=== PATIENT | female | born 1935 | race Caucasian/White ===

== ENCOUNTER 2025-05-08 14:27 | Inpatient (IN) | payer BC, OTHER ==
[~2025-05-08] VITALS: Ht 162.6 cm; Wt 72.6 kg
[2025-05-08] MEDS: IV NS 0.9% 1,000 ML BAG IV ONE (15:30)
[2025-05-08] MEDS: CEFEPIME 1 GM in IV D5W 50 ML IV ONE (15:42)
[2025-05-08 15:49] LABS: PLATELET COUNT (AUTO) 90 K/uL (150-450); RED BLOOD CELL COUNT(AUTO) 4.53 MIL/uL (4.0-5.2); RED CELL DISTRIBUTION WIDTH 17.7 % (11.5-15.0); WHITE BLOOD COUNT (AUTO) 27.6 K/uL (4.3-11.0)
[2025-05-08 16:01] LABS: INR 1.04 (0.91-1.10)
[2025-05-08 16:07] LABS: ASPARTATE AMINOTRANSFERASE 79 U/L (15-37); CALCIUM, SERUM 8.1 mg/dL (8.5-10.1); CREATININE 2.2 mg/dL (0.6-1.3); SODIUM SERUM 137 mmol/L (136-145); TOTAL PROTEIN, SERUM 6.6 g/dL (6.4-8.2); UREA NITROGEN, BLOOD 32 mg/dL (7-18)
[2025-05-08] MEDS ORDERED: ZINC57OI4 TP (16:18)
[2025-05-08] MEDS ORDERED: MAGN400O6 PO (16:18)
[2025-05-08] MEDS ORDERED: ASCO-352 PO (16:18)
[2025-05-08] MEDS ORDERED: HYDR-4209 PO (16:18)
[2025-05-08] MEDS ORDERED: LISI40TA13 PO (16:18)
[2025-05-08] MEDS ORDERED: LEVO75TA PO (16:18)
[2025-05-08] MEDS ORDERED: AMLO10TA4 PO (16:18)
[2025-05-08] MEDS ORDERED: CRAN3875 PO (16:18)
[2025-05-08] MEDS ORDERED: ACET-868 PO ×2 (16:18)
[2025-05-08] MEDS ORDERED: L. A1TAB10 PO (16:18)
[2025-05-08] MEDS ORDERED: CRAN425C6 PO (16:18)
[2025-05-08] MEDS ORDERED: MULT-213 PO (16:18)
[2025-05-08] MEDS ORDERED: ASPI-1169 PO (16:18)
[2025-05-08] MEDS ORDERED: PREG25CA51 PO (16:18)
[2025-05-08] MEDS ORDERED: CLOP75TA15 PO (16:18)
[2025-05-08] MEDS ORDERED: CALC-261 PO (16:18)
[2025-05-08] MEDS ORDERED: DOCU100T2 PO (16:18)
[2025-05-08 16:50] LABS: LACTIC ACID 3.5 mmol/L (0.4-2.0)
[2025-05-08 16:58] LABS: BAND % (MANUAL) 4 % (0.0-5.0); NEUTROPHILS % (MANUAL) 91 (42-76)
[2025-05-08 16:59] LABS: BASOPHILS % (MANUAL) 0 % (0.0-2.0); EOSINOPHILS % (MANUAL) 0 % (0-4); LYMPHOCYTES % (MANUAL) 3 % (16-48); MONOCYTES % (MANUAL) 2 % (0-11.0); PLATELET ESTIMATE DECREASED
[2025-05-08] MEDS ORDERED: DOSING PER PHARMACY-VANCOMYCIN IV XX PRN (17:30)
[2025-05-08] MEDS ORDERED: ACETAMINOPHEN 325 MG TABLET PO PRN (17:30)
[2025-05-08] MEDS ORDERED: IPRATROPIUM NEB FS 0.5 MG/2.5 ML AMPUL.NEB NEB PRN (17:30)
[2025-05-08] MEDS ORDERED: Z GUARD REMEDY 4 OZ OINT TP PRN (17:30)
[2025-05-08] MEDS ORDERED: ALBUTEROL FS 2.5 MG/0.5 ML VIAL.NEB NEB PRN (17:30)
[2025-05-08] MEDS ORDERED: MAGNESIUM HYDROXIDE 30 ML UDC PO PRN (17:30)
[2025-05-08] MEDS ORDERED: DOSING PER PHARMACY-CEFEPIME IVPB XX PRN (17:30)
[2025-05-08] MEDS ORDERED: DEXTROSE 50%-WATER 50 ML DISP.SYRIN IV PRN (17:30)
[2025-05-08] MEDS ORDERED: MAG HYDROX/AL HYDROX/SIMETH 30 ML UDC PO PRN (17:30)
[2025-05-08] MEDS ORDERED: ONDANSETRON HCL/PF 4 MG/2 ML VIAL IVP PRN (17:30)
[2025-05-08 18:06] LABS: APPEARANCE,URINE SLIGHTLY CLOUDY (CLEAR); BLOOD, URINE 2+ Ery/uL (NEGATIVE); LEUKOCYTE ESTERASE ,URINE 2+ (NEGATIVE); NITRITE, URINE NEGATIVE (NEGATIVE); UGLUCOSE NEGATIVE (NEGATIVE)
[2025-05-08 18:45] LABS: ADD URINE CULTURE YES; SQUAMOUS EPITHELIAL CELL,UR Few /HPF (None Seen)
[2025-05-08] MEDS: HYDROCORTISONE SOD SUCCINATE 100 MG/2 ML VIAL IV SCH (19:28)
[2025-05-08] MEDS: BLOOD SUGAR DIAGNOSTIC 1 EACH STRIP IN SCH (19:57)
[2025-05-08] MEDS: INSULIN REGULAR, HUMAN 100 UNIT/ML 3 ML VIAL SQ PRN (19:58)
[2025-05-08] MEDS: VANCOMYCIN HCL 1.25 GM in IV D5W 250 ML IV ONE (20:04)
[2025-05-08] MEDS: IV NS 0.9% 1,000 ML IV PRN (20:04)
[2025-05-08 22:00] VITALS: BP 116/84; TEMP 98.1; O2SAT 97
[2025-05-09] VITALS (68 sets, daily range): BP systolic 74–124; BP diastolic 40–95; TEMP 97.3–98.4; O2SAT 93–100
[2025-05-09] MEDS: IV NS 0.9% 500 ML IV ONE (01:23)
[2025-05-09] MEDS ORDERED: IV NS 0.9% 500 ML IV ONE (01:30)
[2025-05-09] MEDS: HYDROCORTISONE SOD SUCCINATE 100 MG/2 ML VIAL IV SCH (02:51)
[2025-05-09] MEDS: CEFEPIME 1 GM in IV D5W 50 ML IV SCH (02:51)
[2025-05-09] MEDS: NOREPINEPHRINE 8MG/250ML RTU 250 ML IV ONE (03:33)
[2025-05-09] MEDS: NOREPINEPHRINE 8 MG in IV NS 0.9% 242 ML IV PRN (03:56)
[2025-05-09] MEDS ORDERED: PANTOPRAZOLE 40 MG TABLET.DR PO SCH (07:30)
[2025-05-09 08:01] LABS: CALCIUM, SERUM 8.3 mg/dL (8.5-10.1); CREATININE 1.6 mg/dL (0.6-1.3); PHOSPHORUS 3.8 mg/dL (2.5-4.9); SODIUM SERUM 143.0 mmol/L (136-145); UREA NITROGEN, BLOOD 29.0 mg/dL (7-18)
[2025-05-09] MEDS: PANTOPRAZOLE 40 MG VIAL IV SCH (08:18)
[2025-05-09 08:19] LABS: PLATELET COUNT (AUTO) 132 K/uL (150-450); RED BLOOD CELL COUNT(AUTO) 4.74 MIL/uL (4.0-5.2); RED CELL DISTRIBUTION WIDTH 18.0 % (11.5-15.0)
[2025-05-09 08:25] LABS: WHITE BLOOD COUNT (AUTO) 38.2 K/uL (4.3-11.0)
[2025-05-09 10:36] LABS: BASOPHILS % (MANUAL) 0 % (0.0-2.0); EOSINOPHILS % (MANUAL) 0 % (0-4); LYMPHOCYTES % (MANUAL) 5 % (16-48); MONOCYTES % (MANUAL) 3 % (0-11.0); NEUTROPHILS % (MANUAL) 92 (42-76); PLATELET ESTIMATE DECREASED
[2025-05-09] MEDS: VANCOMYCIN 500 MG in IV D5W 100ml IV SCH (20:00)
[2025-05-09 22:22] LABS: HIV-1/2 ANTIBODY NON REACTIVE (NONREACTIVE)
[2025-05-10] VITALS (28 sets, daily range): BP systolic 88–145; BP diastolic 38–75; TEMP 97.9–98.2; O2SAT 95–97
[2025-05-10 00:02] LABS: CREATININE, URINE 51.5 MG/DL (30.0-125.0); URINE TOTAL PROTEIN 39.3 mg/dL (0-11.9)
[2025-05-10 04:30] LABS: PLATELET COUNT (AUTO) 89 K/uL (150-450); RED BLOOD CELL COUNT(AUTO) 4.32 MIL/uL (4.0-5.2); RED CELL DISTRIBUTION WIDTH 18.7 % (11.5-15.0); WHITE BLOOD COUNT (AUTO) 13.7 K/uL (4.3-11.0)
[2025-05-10 04:45] LABS: ASPARTATE AMINOTRANSFERASE 23.0 U/L (15-37); CALCIUM, SERUM 8.0 mg/dL (8.5-10.1); CREATININE 1.2 mg/dL (0.6-1.3); PHOSPHORUS 2.6 mg/dL (2.5-4.9); SODIUM SERUM 142.0 mmol/L (136-145); TOTAL PROTEIN, SERUM 6.0 g/dL (6.4-8.2); UREA NITROGEN, BLOOD 27.0 mg/dL (7-18)
[2025-05-10 05:11] LABS: CREATINE KINASE, TOTAL 132.0 U/L (26-192); LYMPHOCYTES % (MANUAL) 9 % (16-48); MONOCYTES % (MANUAL) 2 % (0-11.0); NEUTROPHILS % (MANUAL) 89 (42-76)
[2025-05-10 05:12] LABS: PLATELET ESTIMATE DECREASED
[2025-05-10] MEDS: PANTOPRAZOLE 40 MG TABLET.DR PO SCH (08:33)
[2025-05-10] MEDS ORDERED: VANCOMYCIN 1 GM in IV D5W 250ml IV SCH (20:00)
[2025-05-11] VITALS (78 sets, daily range): BP systolic 34–157; BP diastolic 13–134; TEMP 96.8–98.4; O2SAT 77–99
[2025-05-11] MEDS: TEMAZEPAM 7.5 MG CAPSULE PO PRN (00:07)
[2025-05-11 01:58] LABS: ABG BASE EXCESS -14.7 mmol/L (-2.0-3.0); ABG OXYGEN SATURATION 99.4 % (94.0-98.0); ABG PCO2 56.7 mmHg (32.0-45.0); ABG PH 7.064 (7.350-7.450); ABG PO2 263.6 mmHg (83.0-108.0); ABG TOTAL HEMOGLOBIN 14.2 G/dL (12.0-16.0); FLOW, BLOOD GAS 15.00 L/min (0.00-30.00); FRACTIONATED INSPIRED OXYGEN 100.0 %; SITE, ABG RIGHT BRACHIAL
[2025-05-11] MEDS: NOREPINEPHRINE 8 MG in IV NS 0.9% 242 ML IV PRN (02:59)
[2025-05-11] MEDS: FUROSEMIDE 40 MG/4 ML VIAL IV ONE (03:02)
[2025-05-11] MEDS: PROPOFOL 100 ML ONE (03:10)
[2025-05-11] MEDS: NOREPINEPHRINE 8MG/250ML RTU 250 ML IV ONE (03:12)
[2025-05-11] MEDS: PROPOFOL 10MG/ML 50ML 50 ML IV PRN (03:25)
[2025-05-11] MEDS: PHENYLEPHRINE 50 MG in IV NS 0.9% 245 ML IV PRN (03:30)
[2025-05-11 03:42] LABS: PLATELET COUNT (AUTO) 145 K/uL (150-450); RED BLOOD CELL COUNT(AUTO) 4.91 MIL/uL (4.0-5.2); RED CELL DISTRIBUTION WIDTH 18.4 % (11.5-15.0)
[2025-05-11 03:51] LABS: ABG BASE EXCESS -9.8 mmol/L (-2.0-3.0); ABG OXYGEN SATURATION 99.8 % (94.0-98.0); ABG PCO2 41.1 mmHg (32.0-45.0); ABG PH 7.237 (7.350-7.450); ABG PO2 354.6 mmHg (83.0-108.0); ABG TOTAL HEMOGLOBIN 14.6 G/dL (12.0-16.0); FRACTIONATED INSPIRED OXYGEN 100.0 %; PEEP,BG 0 cm H2O; SET RATE, BG 20.0; SITE, ABG RIGHT RADIAL; VT, ABG 450 mL
[2025-05-11 03:57] LABS: ASPARTATE AMINOTRANSFERASE 28.0 U/L (15-37); CALCIUM, SERUM 8.3 mg/dL (8.5-10.1); CREATININE 1.5 mg/dL (0.6-1.3); NT-PRO BNP 10092.0 pg/mL (0-125); SODIUM SERUM 144.0 mmol/L (136-145); TOTAL PROTEIN, SERUM 6.5 g/dL (6.4-8.2); UREA NITROGEN, BLOOD 34.0 mg/dL (7-18)
[2025-05-11 03:58] LABS: WHITE BLOOD COUNT (AUTO) 31.7 K/uL (4.3-11.0)
[2025-05-11] MEDS: PHENYLEPHRINE 10 MG/ML VIAL ONE (03:59)
[2025-05-11 04:17] LABS: LYMPHOCYTES % (MANUAL) 3 % (16-48); MONOCYTES % (MANUAL) 2 % (0-11.0); NEUTROPHILS % (MANUAL) 95 (42-76); PLATELET ESTIMATE DECREASED
[2025-05-11] MEDS ORDERED: IV NS 0.9% 250 ML IV ONE (04:30)
[2025-05-11] MEDS ORDERED: CT SWABBABLE VALVE TRANS SET 1 EA INFUS.SET MC ONE (04:30)
[2025-05-11] MEDS ORDERED: IOHEXOL-350 100 ML VIAL IV ONE (04:30)
[2025-05-11] MEDS: HYDROCORTISONE SOD SUCCINATE 100 MG/2 ML VIAL IV STA (07:43)
[2025-05-11] MEDS: SODIUM BICARBONATE SYR 50 MEQ/50 ML DISP.SYRIN IV ONE ×2 (08:35→08:50)
[2025-05-11] MEDS: IV LR 500 ML IV ONE (08:47)
[2025-05-11] MEDS: VASOPRESSIN INJ 40 UNIT in IV NS 0.9% 38 ML IV PRN (08:57)
[2025-05-11] MEDS: ENSURE ENLIVE 237 ML LIQUID (VANILLA) PO SCH (09:00)
[2025-05-11 09:52] LABS: ABG BASE EXCESS -13.8 mmol/L (-2.0-3.0); ABG OXYGEN SATURATION 99.5 % (94.0-98.0); ABG PCO2 29.3 mmHg (32.0-45.0); ABG PH 7.236 (7.350-7.450); ABG PO2 300.6 mmHg (83.0-108.0); ABG TOTAL HEMOGLOBIN 14.7 G/dL (12.0-16.0); FRACTIONATED INSPIRED OXYGEN 100.0 %; PEEP,BG 5 cm H2O; SET RATE, BG 16.0; SITE, ABG LEFT RADIAL; VT, ABG 450 mL
[2025-05-11] MEDS: Sodium Bicarbonate 150 MEQ in IV D5W 1,000 ML IV SCH (09:56)
[2025-05-11] MEDS ORDERED: DOSING PER PHARMACY-VANCOMYCIN IV XX PRN (10:00)
[2025-05-11] MEDS: HYDROCORTISONE SOD SUCCINATE 100 MG/2 ML VIAL IV SCH ×2 (11:27→13:11)
[2025-05-11] MEDS: VANCOMYCIN 500 MG in IV D5W 100ml IV SCH (12:19)
[2025-05-11] MEDS ORDERED: EPINEPHRINE (1:10,000) SYRINGE 1 MG/10 ML DISP.SYRIN IVP ONE (12:29)
[2025-05-11] MEDS ORDERED: ETOMIDATE 2 MG/ML VIAL IV ONE (12:29)
[2025-05-11] MEDS ORDERED: ROCURONIUM BROMIDE 50 MG/5 ML IV ONE (12:29)
[2025-05-11] MEDS ORDERED: SODIUM BICARBONATE SYR 50 MEQ/50 ML DISP.SYRIN IV ONE (12:29)
[2025-05-11] MEDS: MEROPENEM 500 MG in IV NS 0.9% 50 ML IV SCH (13:11)
[2025-05-11] MEDS ORDERED: NOREPINEPHRINE 32 MG in IV NS 0.9% 218 ML IV PRN (14:00)
[2025-05-11] MEDS: NOREPINEPHRINE 32 MG in IV NS 0.9% 218 ML IV PRN (14:54)
[2025-05-11] MEDS: PHENYLEPHRINE 100 MG in IV NS 0.9% 240 ML IV PRN (14:57)
[2025-05-11] MEDS ORDERED: HEPARIN SODIUM, PORCINE 5000 UNITS/1 ML VIAL SQ SCH (21:00)
[2025-05-11] MEDS ORDERED: FUROSEMIDE 40 MG/4 ML VIAL IV SCH (21:00)
[2025-05-11] MEDS ORDERED: HEPARIN SODIUM,PORCINE/PF 50 UNIT/5 ML DISP.SYRIN IV ONE (23:00)
[2025-05-11] MEDS: HEPARIN SODIUM, PORCINE 5000 UNITS/1 ML VIAL IV ONE (23:40)
[2025-05-11] MEDS: HEPARIN INFUSION/D5W 500 ML IV PRN (23:46)
[2025-05-12] VITALS (14 sets, daily range): BP systolic 34–83; BP diastolic 12–66; TEMP 97.8; O2SAT 90–92
[2025-05-12] MEDS ORDERED: VASOPRESSIN INJ 20 UNIT/ML VIAL ONE (03:00)
[2025-05-12] MEDS ORDERED: SODIUM BICARBONATE SYR 50 MEQ/50 ML DISP.SYRIN IV ONE (05:42)
[2025-05-12 07:07] LABS: PTH, INTACT 46 pg/mL (15-65)
== END 2025-05-12 05:43 | DRG 871 ==
LOC: ER 14:35 → TELE1 17:46 → ICU 05-09 03:35 → TELE1 05-10 18:18 → ICU 05-11 02:57
PROC: 5A1935Z Respiratory Ventilation, Less than 24 Consecutive Hours (ICD-10-PCS; principal; 2025-05-11)
PROC: 0BH17EZ Insertion of Endotracheal Airway into Trachea, Via Natural or Artificial Opening (ICD-10-PCS; 2025-05-11)
PROC: 5A2204Z Restoration of Cardiac Rhythm, Single (ICD-10-PCS; 2025-05-11)
PROC: 0JHL3XZ Insertion of Tunneled Vascular Access Device into Right Upper Leg Subcutaneous Tissue and Fascia, Percutaneous Approach (ICD-10-PCS; 2025-05-11)
PROC: 06HM33Z Insertion of Infusion Device into Right Femoral Vein, Percutaneous Approach (ICD-10-PCS; 2025-05-11)
DX: A41.9 Sepsis, unspecified organism (principal); G92.8 Other toxic encephalopathy; J69.0 Pneumonitis due to inhalation of food and vomit; N17.0 Acute kidney failure with tubular necrosis; J96.01 Acute respiratory failure with hypoxia; J96.02 Acute respiratory failure with hypercapnia; N39.0 Urinary tract infection, site not specified; I50.32 Chronic diastolic (congestive) heart failure; I48.92 Unspecified atrial flutter; R18.8 Other ascites; J90 Pleural effusion, not elsewhere classified; J98.11 Atelectasis; Z66 Do not resuscitate; Z20.822 Contact with and (suspected) exposure to COVID-19; I11.0 Hypertensive heart disease with heart failure; I25.119 Atherosclerotic heart disease of native coronary artery with unspecified angina pectoris; I48.91 Unspecified atrial fibrillation; N20.0 Calculus of kidney; M19.90 Unspecified osteoarthritis, unspecified site; Z88.8 Allergy status to other drugs, medicaments and biological substances; Z98.890 Other specified postprocedural states; Z79.02 Long term (current) use of antithrombotics/antiplatelets; Z79.82 Long term (current) use of aspirin; Z79.899 Other long term (current) drug therapy; K74.60 Unspecified cirrhosis of liver; E11.51 Type 2 diabetes mellitus with diabetic peripheral angiopathy without gangrene; E78.5 Hyperlipidemia, unspecified; E03.9 Hypothyroidism, unspecified; K57.30 Diverticulosis of large intestine without perforation or abscess without bleeding; M89.8X9 Other specified disorders of bone, unspecified site; Z90.49 Acquired absence of other specified parts of digestive tract; Z79.890 Hormone replacement therapy; R16.1 Splenomegaly, not elsewhere classified; I05.0 Rheumatic mitral stenosis; D69.6 Thrombocytopenia, unspecified; N28.1 Cyst of kidney, acquired; Z94.5 Skin transplant status
CPT/HCPCS: 31720; 36415; 36600; 70450-TC; 71045-TC; 76770-TC; 80048-TC; 80053-TC; 80076-TC; 80202-TC; 81001; 82533; 82550-TC; 82570-TC; 82803-TC; 82962-TC; 83605-TC; 83735-TC; 83880; 83970; 84100-TC; 84155; 84165; 84300-TC; 84484-TC; 85027-TC; 85730-TC; 86803; 87040-TC; 87081-TC; 87086-TC; 87806; 92526; 92611; 93307-TC; 94002-TC; 94003-TC; 94799-TC; 99082-TC; A4223; A6253; G0378; J0169; J0692; J1642; J1644; J1720; J1815; J1938; J2185; J2470; J3373; J3490; J7030; J7040; J7050; J7060; J7070; J7120; Q9967